=== PATIENT | female | born 1945 ===

== ENCOUNTER 2019-01-26 05:51 | Day surgery (SDC) | payer OTHER ==
[~2019-01-26 05:51] MED LIST: PANADOL EXTRA500 MG PO
[2019-01-26] MEDS ORDERED: PERCOCET 5-3251 EACH PO (10:06)
[2019-01-26] MEDS ORDERED: RECTICARE30 GM TOP (10:07)
== END 2019-01-26 16:40 | disposition home or self-care (01) ==
LOC: CIR.AMB 05:51
DX: D12.9 Benign neoplasm of anus and anal canal (principal)